=== PATIENT | male | born 1985 | race Caucasian/White ===

== ENCOUNTER → 2019-02-27 | Outpatient (REF) | payer MEDICARE, OTHER, MEDICAID ==
[2019-02-27 12:36] LABS: ALBUMIN 3.8 GM/DL (3.2-5.2); ALT/SGPT 33 U/L (12-78); BILIRUBIN,TOTAL 0.6 MG/DL (0.2-1.0); BLOOD UREA NITROGEN 9 MG/DL (7-18); CALCIUM LEVEL 9.1 MG/DL (8.5-10.1); CARBON DIOXIDE LEVEL 25 MEQ/L (21-32); CHLORIDE LEVEL 107 MEQ/L (98-107); CHOLESTEROL LEVEL 185 MG/DL (<200); CHOLESTEROL RISK RATIO 5.967 (<5); GLOMERULAR FILTRATION RATE > 60.0 (>60); GLUCOSE, FASTING 84 MG/DL (70-100); HDL CHOLESTEROL 31 MG/DL (>40); LDL CHOLESTEROL 118 MG/DL (<100); NON-HDL-C 154 MG/DL; POTASSIUM SERUM 3.9 MEQ/L (3.5-5.1); SODIUM LEVEL 140 MEQ/L (136-145); THYROID STIMULATING HORMONE 0.715 uIU/ML (0.358-3.740); TOTAL PROTEIN 6.8 GM/DL (6.4-8.2); TRIGLYCERIDES LEVEL 180 MG/DL (<150)
[2019-02-27 13:20] LABS: MALB URINE SIEMENS 20.9 MG/L; MAU/CREAT RATIO 11.8 MCG/MG (0.0-30.0)
== END ==
LOC: M SFHCPLAZ 08:55
PROVIDERS: ATTEND Family Medicine
DX: I10 Essential (primary) hypertension (principal); Z13.220 Encounter for screening for lipoid disorders; Z13.1 Encounter for screening for diabetes mellitus; Z68.41 Body mass index [BMI] 40.0-44.9, adult; G47.33 Obstructive sleep apnea (adult) (pediatric)

== ENCOUNTER → 2020-07-15 | Outpatient (REF) | payer OTHER, MEDICAID, MEDICARE | LOC: M SFHCPLAZ 16:59 | PROVIDERS: ATTEND Physician Assistant | DX: J40 Bronchitis, not specified as acute or chronic (principal); R68.83 Chills (without fever); R52 Pain, unspecified; R19.7 Diarrhea, unspecified ==

== ENCOUNTER → 2020-10-26 | Outpatient (REF) | payer OTHER, MEDICAID ==
[2020-10-26 18:02] LABS: BASO # 0.1 10^3/uL (0.0-0.2); BASO % 0.6 % (0.0-1.0); EOS # 0.2 10^3/uL (0.0-0.5); EOS % 2.5 % (0.0-3.0); HEMATOCRIT 45.3 % (42.0-52.0); HEMOGLOBIN 15.2 g/dl (13.5-17.5); LYMPH # 2.8 10^3/uL (1.5-5.0); LYMPH % 29.7 % (24.0-44.0); MEAN CORPUSCULAR HEMOGLOBIN 30.2 pg (27.0-33.0); MEAN CORPUSCULAR HGB CONC 33.6 g/dl (32.0-36.5); MEAN CORPUSCULAR VOLUME 90.1 fl (80.0-96.0); MONO % 10.9 % (0.0-5.0); NEUTROPHILS # 5.3 10^3/uL (1.5-8.5); NEUTROPHILS % 55.9 % (36.0-66.0); PLATELET COUNT, AUTOMATED 200 10^3/uL (150-450); RED BLOOD COUNT 5.03 10^6/uL (4.30-6.10); WHITE BLOOD COUNT 9.5 10^3/uL (4.0-10.0)
[2020-10-26 18:33] LABS: ALBUMIN 3.9 GM/DL (3.2-5.2); ALT/SGPT 44 U/L (12-78); BILIRUBIN,TOTAL 0.3 MG/DL (0.2-1.0); BLOOD UREA NITROGEN 13 MG/DL (7-18); CALCIUM LEVEL 9.2 MG/DL (8.5-10.1); CARBON DIOXIDE LEVEL 27 MEQ/L (21-32); CHLORIDE LEVEL 104 MEQ/L (98-107); CREATININE FOR GFR 0.76 MG/DL (0.70-1.30); GLOMERULAR FILTRATION RATE > 60.0 (>60); GLUCOSE, FASTING 88 MG/DL (70-100); POTASSIUM SERUM 4.1 MEQ/L (3.5-5.1); SODIUM LEVEL 140 MEQ/L (136-145); TOTAL PROTEIN 6.9 GM/DL (6.4-8.2)
== END ==
LOC: M PLALAB 16:54
PROVIDERS: ATTEND Student in an Organized Health Care Education/Training Program
DX: I10 Essential (primary) hypertension (principal)

== ENCOUNTER 2023-09-04 17:31 | Emergency (ER) | payer MEDICARE, MEDICAID ==
[2023-09-04] MEDS ORDERED: NS 1,000 ML IV ONE (20:50)
[2023-09-04] MEDS ORDERED: KETOROLAC 30 MG/ML 1ML VIAL IV ONE (20:50)
[2023-09-04] MEDS ORDERED: CLINDAMYCIN 900 MG in IV 1 EA IV ONE (20:50)
[2023-09-04] MEDS ORDERED: dexAMETHasone 20MG/5ML VIAL IV ONE (20:50)
[2023-09-04 21:13] LABS: BASO % 0.4 % (0.0-1.0); EOS # 0.1 10^3/uL (0.0-0.5); EOS % 0.9 % (0.0-3.0); HEMATOCRIT 46.8 % (42.0-52.0); HEMOGLOBIN 16.2 g/dl (13.5-17.5); LYMPH # 2.1 10^3/uL (1.5-5.0); LYMPH % 18.3 % (24.0-44.0); MEAN CORPUSCULAR HEMOGLOBIN 30.2 pg (27.0-33.0); MEAN CORPUSCULAR HGB CONC 34.6 g/dl (32.0-36.5); MEAN CORPUSCULAR VOLUME 87.3 fl (80.0-96.0); MONO # 1.1 10^3/uL (0.0-0.8); MONO % 10.1 % (2.0-8.0); NEUTROPHILS # 7.9 10^3/uL (1.5-8.5); NEUTROPHILS % 70.1 % (36.0-66.0); PLATELET COUNT, AUTOMATED 229 10^3/uL (150-450); RED BLOOD COUNT 5.36 10^6/uL (4.30-6.10); WHITE BLOOD COUNT 11.2 10^3/uL (4.0-10.0)
[2023-09-04 21:23] LABS: ERYTHROCYTE SEDIMENTATION RATE 40 mm/hr (0-15)
[2023-09-04] MEDS ORDERED: LISI40TA4 PO (21:32)
[2023-09-04] MEDS ORDERED: TOPR100T PO (21:32)
[2023-09-04] MEDS ORDERED: HYDR-3490 PO (21:32)
[2023-09-04 21:38] LABS: BLOOD UREA NITROGEN 9 MG/DL (9-23); CARBON DIOXIDE LEVEL 22 MMOL/L (20-31); CHLORIDE LEVEL 107 MMOL/L (98-107); CREATININE FOR GFR 0.56 MG/DL (0.70-1.30); GLOMERULAR FILTRATION RATE > 60.0 (>60); GLUCOSE, FASTING 83 MG/DL (60-100); POTASSIUM SERUM 3.7 MMOL/L (3.5-5.1); SODIUM LEVEL 141 MMOL/L (136-145)
[2023-09-04] MEDS ORDERED: METOPROLOL SUCC (TopROL XL) 100MG *XL* TAB PO ONE (22:10)
[2023-09-04] MEDS ORDERED: lisinopriL 40MG TAB PO ONE (22:10)
[2023-09-04 22:24] VITALS: BP 194/96
[2023-09-04 23:29] VITALS: BP 128/72; TEMP 97.1; O2SAT 96
[2023-09-04] MEDS ORDERED: CLEO300C2 PO (23:29)
== END 2023-09-04 23:39 | disposition home or self-care (01) ==
LOC: M ED 17:31
DX: K04.7 Periapical abscess without sinus (principal); L03.211 Cellulitis of face; Z88.0 Allergy status to penicillin; Z88.8 Allergy status to other drugs, medicaments and biological substances; Z91.89 Other specified personal risk factors, not elsewhere classified; Z91.018 Allergy to other foods; Z91.041 Radiographic dye allergy status
CPT/HCPCS: 70490; 80048; 85025; 85652; 86140; 96365; 96375; 99284; J0737; J1100; J1885

== ENCOUNTER 2023-09-06 10:51 | Observation (INO) | payer MEDICARE, MEDICAID ==
[~2023-09-06] VITALS: Ht 180.3 cm; Wt 108.7 kg
[~2023-09-06 10:51] MED LIST: CLEO300C2 PO; HYDR-3490 PO; LISI40TA4 PO; TOPR100T PO
[2023-09-06] MEDS ORDERED: dexAMETHasone 20MG/5ML VIAL IV ONE (13:55)
[2023-09-06] MEDS ORDERED: NS 1,000 ML IV ONE (14:05)
[2023-09-06] MEDS ORDERED: MOXIFLOXACIN HCL 400 MG in IV 1 EA IV ONE (14:05)
[2023-09-06] MEDS ORDERED: MED REC IN PROGRESS XX SCH (14:15)
[2023-09-06 14:18] LABS: BASO % 0.3 % (0.0-1.0); EOS # 0.1 10^3/uL (0.0-0.5); EOS % 0.5 % (0.0-3.0); HEMATOCRIT 47.4 % (42.0-52.0); HEMOGLOBIN 16.2 g/dl (13.5-17.5); LYMPH # 2.2 10^3/uL (1.5-5.0); LYMPH % 15.8 % (24.0-44.0); MEAN CORPUSCULAR HEMOGLOBIN 29.7 pg (27.0-33.0); MEAN CORPUSCULAR HGB CONC 34.2 g/dl (32.0-36.5); MONO % 11.5 % (2.0-8.0); NEUTROPHILS % 71.5 % (36.0-66.0); PLATELET COUNT, AUTOMATED 255 10^3/uL (150-450); RED BLOOD COUNT 5.45 10^6/uL (4.30-6.10)
[2023-09-06 14:38] LABS: MONO # 1.6 10^3/uL (0.0-0.8)
[2023-09-06 14:48] LABS: ERYTHROCYTE SEDIMENTATION RATE 36 mm/hr (0-15)
[2023-09-06] MEDS ORDERED: CLEO300C2 PO (14:54)
[2023-09-06] MEDS ORDERED: HOME MED LIST COMPLETE! XX SCH (15:00)
[2023-09-06] MEDS ORDERED: LABETALOL 100MG/20ML VIAL IV STA (15:15)
[2023-09-06 15:20] LABS: RSV AMPLIFICATION NEGATIVE (NEGATIVE)
[2023-09-06 15:30] LABS: ALBUMIN 3.6 G/DL (3.2-5.2); ALKALINE PHOSPHATASE 87 U/L (46-116); ALT/SGPT 29 U/L (7.0-40); AST/SGOT 11 U/L (<34); BILIRUBIN,TOTAL 0.7 MG/DL (0.3-1.2); BLOOD UREA NITROGEN 10 MG/DL (9-23); CALCIUM LEVEL 9.2 MG/DL (8.5-10.1); CARBON DIOXIDE LEVEL 26 MMOL/L (20-31); CHLORIDE LEVEL 105 MMOL/L (98-107); CREATININE FOR GFR 0.57 MG/DL (0.70-1.30); GLOMERULAR FILTRATION RATE > 60.0 (>60); GLUCOSE, FASTING 95 MG/DL (60-100); POTASSIUM SERUM 4.1 MMOL/L (3.5-5.1); SODIUM LEVEL 137 MMOL/L (136-145)
[2023-09-06 15:41] LABS: PROCALCITONIN <0.04 ng/ml
[2023-09-06] MEDS ORDERED: fentaNYL 100 MCG/2 ML INJECTION As Ordered ONE (15:42)
[2023-09-06] MEDS ORDERED: propofoL 200 MG/20 ML VIAL As Ordered ONE (15:42)
[2023-09-06] MEDS ORDERED: MIDAZOLAM INJ 2MG/2ML VIAL As Ordered ONE (15:42)
[2023-09-06] MEDS ORDERED: LIDOCAINE 2% 100MG/5ML SDV (FOR ANES.) As Ordered ONE (15:43)
[2023-09-06] MEDS ORDERED: ONDANSETRON 4MG 2ML VIAL As Ordered ONE (15:44)
[2023-09-06] MEDS ORDERED: ROCURONIUM BROMIDE 50MG/5ML VIAL As Ordered ONE (15:46)
[2023-09-06] MEDS ORDERED: SUGAMMADEX SODIUM 500 MG/5 ML VIAL (BRIDION) As Ordered ONE (15:46)
[2023-09-06] MEDS ORDERED: CHLORHEXIDINE GLUCONATE 0.12 % 15ML UDC (PERIDEX ORAL RINSE) As Ordered ONE ×2 (15:50→16:45)
[2023-09-06] MEDS ORDERED: MEPIVACAINE HCL 3 % 1.7 ML DENTAL CARTRIDGE (CARBOCAINE) As Ordered ONE (15:50)
[2023-09-06] MEDS ORDERED: LIDOCAINE 2% W/ EPINEPHRINE 1.7 ML DENTAL INJ As Ordered ONE (15:52)
[2023-09-06] MEDS ORDERED: HYDROmorphone HCL 2MG/ML 1ML VIAL As Ordered ONE (16:31)
[2023-09-06] MEDS ORDERED: hydrALAZINE 20MG/ML 1ML VIAL As Ordered ONE (16:41)
[2023-09-06] MEDS ORDERED: ACETAMINOPHEN 1000MG 100ML IV BAG As Ordered ONE (16:44)
[2023-09-06] MEDS ORDERED: KETOROLAC 60MG 2ML VIAL As Ordered ONE (16:49)
[2023-09-06 18:01] VITALS: BP 182/94; TEMP 97.9; O2SAT 97
[2023-09-06] MEDS ORDERED: LABETALOL 100MG/20ML VIAL IV PRN (18:15)
[2023-09-06] MEDS: lisinopriL 40MG TAB PO SCH (19:04)
[2023-09-06] MEDS: METOPROLOL SUCC (TopROL XL) 100MG *XL* TAB PO SCH (19:04)
[2023-09-06 19:30] VITALS: BP 168/80; TEMP 97.7; O2SAT 96
[2023-09-06] MEDS: KETOROLAC 30 MG/ML 1ML VIAL IV PRN (20:41)
[2023-09-06] MEDS: ENOXAPARIN 40MG/0.4ML SYRINGE (J1650 PER 10MG) SC SCH (22:27)
[2023-09-06] MEDS: CHLORHEXIDINE GLUCONATE 0.12 % 15ML UDC (PERIDEX ORAL RINSE) SSP SCH (22:34)
[2023-09-06 23:18] VITALS: BP 123/65; TEMP 98; O2SAT 97
[2023-09-07] VITALS (7 sets, daily range): BP systolic 133–160; BP diastolic 80–97; TEMP 97.3–98.1; O2SAT 97–98
[2023-09-07] MEDS ORDERED: ACETAMINOPHEN *IV* 1,000 MG in IV 1 EA IV ONE (01:10)
[2023-09-07 06:56] LABS: HEMATOCRIT 42.8 % (42.0-52.0); MEAN CORPUSCULAR VOLUME 88.4 fl (80.0-96.0); PLATELET COUNT, AUTOMATED 217 10^3/uL (150-450); RED BLOOD COUNT 4.84 10^6/uL (4.30-6.10); WHITE BLOOD COUNT 11.2 10^3/uL (4.0-10.0)
[2023-09-07 07:14] LABS: BLOOD UREA NITROGEN 11 MG/DL (9-23); CALCIUM LEVEL 9.1 MG/DL (8.5-10.1); CARBON DIOXIDE LEVEL 27 MMOL/L (20-31); CHLORIDE LEVEL 106 MMOL/L (98-107); CREATININE FOR GFR 0.61 MG/DL (0.70-1.30); GLOMERULAR FILTRATION RATE > 60.0 (>60); GLUCOSE, FASTING 104 MG/DL (60-100); POTASSIUM SERUM 3.8 MMOL/L (3.5-5.1); SODIUM LEVEL 141 MMOL/L (136-145)
[2023-09-07 08:06] LABS: PROCALCITONIN <0.04 ng/ml
[2023-09-07] MEDS: ENOXAPARIN 40MG/0.4ML SYRINGE (J1650 PER 10MG) SC SCH (09:00)
[2023-09-07] MEDS ORDERED: INFLUENZA QUADRIVALENT PF VACCINE 0.5ML SYRINGE IM.IMMUN ONE (09:00)
[2023-09-07] MEDS: METOPROLOL SUCC (TopROL XL) 100MG *XL* TAB PO SCH (09:00)
[2023-09-07] MEDS: lisinopriL 40MG TAB PO SCH (09:02)
[2023-09-07] MEDS: CHLORHEXIDINE GLUCONATE 0.12 % 15ML UDC (PERIDEX ORAL RINSE) SSP SCH ×4 (09:03→20:40)
[2023-09-07] MEDS: KETOROLAC 30 MG/ML 1ML VIAL IV PRN ×2 (09:19→20:44)
[2023-09-07] MEDS ORDERED: MOXIFLOXACIN HCL 400 MG in IV 1 EA IV SCH (14:00)
[2023-09-07] MEDS: NICOTINE 7 MG/24 HR TRANSDERMAL TD SCH (17:47)
[2023-09-08 03:25] VITALS: BP 125/72; TEMP 97.3; O2SAT 97
[2023-09-08] MEDS: KETOROLAC 30 MG/ML 1ML VIAL IV PRN ×2 (03:29→14:47)
[2023-09-08 07:49] VITALS: BP 157/84; TEMP 97.7; O2SAT 95
[2023-09-08] MEDS: METOPROLOL SUCC (TopROL XL) 100MG *XL* TAB PO SCH (09:00)
[2023-09-08] MEDS: lisinopriL 40MG TAB PO SCH (09:27)
[2023-09-08] MEDS: CHLORHEXIDINE GLUCONATE 0.12 % 15ML UDC (PERIDEX ORAL RINSE) SSP SCH ×4 (09:27→20:38)
[2023-09-08] MEDS: ENOXAPARIN 40MG/0.4ML SYRINGE (J1650 PER 10MG) SC SCH (09:27)
[2023-09-08] MEDS: NICOTINE 7 MG/24 HR TRANSDERMAL TD SCH (09:28)
[2023-09-08 12:00] VITALS: BP 136/72; TEMP 97.6; O2SAT 98
[2023-09-08] MEDS ORDERED: MOXIFLOXACIN 400 MG TAB PO SCH (16:00)
[2023-09-08 19:52] VITALS: BP 168/100; TEMP 97.1; O2SAT 97
[2023-09-08 22:15] VITALS: BP 198/96
[2023-09-08] MEDS ORDERED: hydrALAZINE 20MG/ML 1ML VIAL IV STA (22:16)
[2023-09-09] VITALS: BP 158/90; TEMP 97.4; O2SAT 98
[2023-09-09 04:00] VITALS: BP 146/89; TEMP 97; O2SAT 97
[2023-09-09 06:08] LABS: BASO # 0.1 10^3/uL (0.0-0.2); BASO % 0.8 % (0.0-1.0); EOS # 0.3 10^3/uL (0.0-0.5); EOS % 3.5 % (0.0-3.0); HEMATOCRIT 47.3 % (42.0-52.0); HEMOGLOBIN 16.3 g/dl (13.5-17.5); LYMPH # 2.9 10^3/uL (1.5-5.0); LYMPH % 38.8 % (24.0-44.0); MEAN CORPUSCULAR HEMOGLOBIN 30.1 pg (27.0-33.0); MEAN CORPUSCULAR HGB CONC 34.5 g/dl (32.0-36.5); MEAN CORPUSCULAR VOLUME 87.3 fl (80.0-96.0); MONO # 0.9 10^3/uL (0.0-0.8); MONO % 11.7 % (2.0-8.0); NEUTROPHILS # 3.3 10^3/uL (1.5-8.5); NEUTROPHILS % 44.5 % (36.0-66.0); PLATELET COUNT, AUTOMATED 265 10^3/uL (150-450); RED BLOOD COUNT 5.42 10^6/uL (4.30-6.10); WHITE BLOOD COUNT 7.5 10^3/uL (4.0-10.0)
[2023-09-09 06:39] LABS: BLOOD UREA NITROGEN 17 MG/DL (9-23); CALCIUM LEVEL 9.3 MG/DL (8.5-10.1); CARBON DIOXIDE LEVEL 27 MMOL/L (20-31); CHLORIDE LEVEL 105 MMOL/L (98-107); CREATININE FOR GFR 0.63 MG/DL (0.70-1.30); GLOMERULAR FILTRATION RATE > 60.0 (>60); GLUCOSE, FASTING 91 MG/DL (60-100); POTASSIUM SERUM 3.6 MMOL/L (3.5-5.1); SODIUM LEVEL 142 MMOL/L (136-145)
[2023-09-09] MEDS ORDERED: PERI12LIQ SSP (07:14)
[2023-09-09] MEDS ORDERED: MOXI400T11 PO (07:14)
[2023-09-09 08:00] VITALS: BP 172/97; TEMP 96.7; O2SAT 96
[2023-09-09] MEDS: ENOXAPARIN 40MG/0.4ML SYRINGE (J1650 PER 10MG) SC SCH (08:02)
[2023-09-09 08:07] VITALS: BP 150/90
[2023-09-09] MEDS: METOPROLOL SUCC (TopROL XL) 100MG *XL* TAB PO SCH (08:07)
[2023-09-09] MEDS: lisinopriL 40MG TAB PO SCH (08:07)
[2023-09-09] MEDS: CHLORHEXIDINE GLUCONATE 0.12 % 15ML UDC (PERIDEX ORAL RINSE) SSP SCH (08:07)
[2023-09-09] MEDS: NICOTINE 7 MG/24 HR TRANSDERMAL TD SCH (08:08)
[2023-09-09 08:10] VITALS: BP 150/90; TEMP 98; O2SAT 96
== END 2023-09-09 09:51 | disposition home or self-care (01) ==
LOC: M ED 10:51 → M ED INP 10:52 → M PCU 17:59
PROVIDERS: ADMIT Internal Medicine; ATTEND Internal Medicine
DX: K04.7 Periapical abscess without sinus (principal); L03.211 Cellulitis of face; K12.2 Cellulitis and abscess of mouth; K02.9 Dental caries, unspecified; B95.5 Unspecified streptococcus as the cause of diseases classified elsewhere; I16.9 Hypertensive crisis, unspecified; R13.10 Dysphagia, unspecified; Z83.3 Family history of diabetes mellitus; Z88.0 Allergy status to penicillin; Z91.048 Other nonmedicinal substance allergy status; Z91.041 Radiographic dye allergy status; Z88.8 Allergy status to other drugs, medicaments and biological substances; Z91.030 Bee allergy status; Z91.018 Allergy to other foods; Z79.899 Other long term (current) drug therapy; Z23 Encounter for immunization
CPT/HCPCS: 36415; 41800; 41899; 70355; 80047; 80048; 80053; 84145; 85025; 85027; 85652; 86140; 87070; 87075; 87076; 87077; 87186; 87205; 87631; 90686; 96372; 96374; 96375; 96376; 99284; C1751; G0008; G0378; J0131; J0360; J1100; J1170; J1650; J1885; J1920; J2250; J2280; J2405; J3010

== ENCOUNTER → 2024-04-10 | Outpatient (CLI) | payer MEDICARE, MEDICAID ==
[~2024-04-10] MED LIST changes: +MOXI400T11 PO; +PERI12LIQ SSP
[2024-04-10 14:32] LABS: HEMATOCRIT 48.9 % (42.0-52.0); HEMOGLOBIN 16.1 g/dl (13.5-17.5); MEAN CORPUSCULAR HEMOGLOBIN 30.1 pg (27.0-33.0); MEAN CORPUSCULAR HGB CONC 32.9 g/dl (32.0-36.5); MEAN CORPUSCULAR VOLUME 91.4 fl (80.0-96.0); PLATELET COUNT, AUTOMATED 199 10^3/uL (150-450); RED BLOOD COUNT 5.35 10^6/uL (4.30-6.10); WHITE BLOOD COUNT 7.7 10^3/uL (4.0-10.0)
[2024-04-10 15:02] LABS: ALBUMIN 3.5 G/DL (3.2-5.2); ALKALINE PHOSPHATASE 81 U/L (46-116); ALT/SGPT 33 U/L (7.0-40); AST/SGOT 12 U/L (<34); BILIRUBIN,TOTAL 0.5 MG/DL (0.3-1.2); BLOOD UREA NITROGEN 12 MG/DL (9-23); CALCIUM LEVEL 9.1 MG/DL (8.5-10.1); CARBON DIOXIDE LEVEL 27 MMOL/L (20-31); CHLORIDE LEVEL 109 MMOL/L (98-107); CHOLESTEROL LEVEL 189 MG/DL (<200); CHOLESTEROL RISK RATIO 4.88 (<5); CREATININE FOR GFR 0.73 MG/DL (0.70-1.30); GLOMERULAR FILTRATION RATE > 60.0 (>60); GLUCOSE, FASTING 93 MG/DL (60-100); HDL CHOLESTEROL 38.7 MG/DL (>40); LDL CHOLESTEROL 123.3 MG/DL (<100); NON-HDL-C 150.3 MG/DL; POTASSIUM SERUM 4.4 MMOL/L (3.5-5.1); SODIUM LEVEL 140 MMOL/L (136-145); TOTAL PROTEIN 6.1 G/DL (5.7-8.2); TRIGLYCERIDES LEVEL 135 MG/DL (<150)
[2024-04-10 16:09] LABS: HEMOGLOBIN A1c 5.1 % (4.0-6.0)
== END ==
LOC: M PLALAB 10:38
PROVIDERS: ATTEND Family Medicine
DX: G47.33 Obstructive sleep apnea (adult) (pediatric) (principal); E78.00 Pure hypercholesterolemia, unspecified

== ENCOUNTER 2025-05-17 16:37 | Emergency (ER) | payer MEDICARE, MEDICAID ==
[~2025-05-17] VITALS: Ht 180.3 cm; Wt 132.8 kg
[~2025-05-17 16:37] MED LIST changes: +LISI40TA10 PO; -LISI40TA4 PO
[2025-05-17] MEDS ORDERED: SODI10SO14 OU (17:29)
[2025-05-17 18:04] VITALS: BP 164/97; TEMP 98.8; O2SAT 100
== END 2025-05-17 18:23 | disposition home or self-care (01) ==
LOC: M ED 16:37
DX: H10.33 Unspecified acute conjunctivitis, bilateral (principal); I10 Essential (primary) hypertension; Z88.0 Allergy status to penicillin; Z88.8 Allergy status to other drugs, medicaments and biological substances; Z91.018 Allergy to other foods; Z91.09 Other allergy status, other than to drugs and biological substances; Z91.041 Radiographic dye allergy status; Z79.899 Other long term (current) drug therapy